=== PATIENT | male | born 1995 | race Caucasian/White ===

== ENCOUNTER 2023-11-09 16:37 | Emergency (ER) | payer BC, OTHER ==
[~2023-11-09] VITALS: Ht 175.3 cm; Wt 87.1 kg
[~2023-11-09 16:37] MED LIST: HYDR-3965 PO
[2023-11-09] MEDS: LIDOcaine 1% 30ml preserv. free vial IJ STA (17:04)
[2023-11-09] MEDS: TETanus/Pertussis (Acell)/Diphther VAC/PF (Tdap-Adult) 0.5ml syringe IMVAC ONE (17:04)
[2023-11-09 17:47] VITALS: BP 122/60; PULSE 68; RESP 16; TEMP 98.2; O2SAT 99
== END 2023-11-09 17:49 | disposition home or self-care (01) ==
LOC: ER 16:37
DX: S81.012A Laceration without foreign body, left knee, initial encounter (principal); Z79.899 Other long term (current) drug therapy; W26.8XXA Contact with other sharp object(s), not elsewhere classified, initial encounter; Y93.89 Activity, other specified; Y92.89 Other specified places as the place of occurrence of the external cause; Y99.8 Other external cause status
CPT/HCPCS: 12001; 90471; 90715; 99283; A6222; A6258; A6449